=== PATIENT | male | born 1975 | race Two or more races ===

== ENCOUNTER 2021-06-08 14:29 | Emergency (ER) | payer MEDICAID, OTHER ==
[~2021-06-08] VITALS: Ht 172.7 cm; Wt 95.3 kg
[2021-06-08] MEDS ORDERED: DexAMETHasone SOD PHOS 10MG/1ML VIAL INJ IM ONE (17:45)
[2021-06-08] MEDS ORDERED: cefTRIAXone SOD 1,000 MG VL IM ONE (17:45)
[2021-06-08] MEDS ORDERED: METH4PAK PO (18:14)
[2021-06-08] MEDS ORDERED: PROM1SOL4 PO (18:14)
[2021-06-08] MEDS ORDERED: AZIT500T66 PO (18:14)
[2021-06-08 18:16] VITALS: BP 115/77
== END 2021-06-08 18:30 | disposition home or self-care (01) ==
LOC: ER 14:29
DX: U07.1 COVID-19 (principal); J12.82 Pneumonia due to coronavirus disease 2019
CPT/HCPCS: 36415; 71046; 87426; 96372; 99284; J0696; J1100